=== PATIENT | female | born 1985 | race Caucasian/White ===

== ENCOUNTER 2018-03-27 01:03 | Emergency (ER) | payer SELFPAY ==
[~2018-03-27] VITALS: Ht 175.3 cm; Wt 108.4 kg
--- NOTE | 2018-03-27 01:08 | PHYS DOC ---
Adult General Chief Complaint Chief Complaint: vaginal bleeding, first trimester HPI HPI Patient is a 32 year old estimated 10 weeks gestation with confirmed IUP female who presents painless vaginal bleeding prior to ED arrival. Patient reports coughing and feeling a gash fluid in her vagina. Patient states she went to check herself she passed a large bright red blood clots in the toilet. He has not had any additional bleeding. Denies dizziness lightheadedness. No back pain, pelvic pain. No other acute symptoms or complaints. No prior complications with this .[] Review of Systems Review of Systems Review symptoms as per history of present illness. All other review of symptoms negative. All other systems were reviewed and found to be within normal limits, except as documented in this note. Allergies Allergies Allergies Coded Allergies Type Severity Reaction Last Updated Verified No Known Drug Allergies 03/27/18 No Physical Exam Physical Exam Constitutional: Well developed, well nourished, no acute distress, non-toxic appearance. [] HENT: Normocephalic, atraumatic, bilateral external ears normal, oropharynx moist, no oral exudates, nose normal. [] Eyes: PERRLA, EOMI, conjunctiva normal, no discharge. [] Abdomen: Bowel sounds normal, soft, no tenderness, no masses, no pulsatile masses. [] : External genitalia, dry blood present, minimal blood present in vaginal vault, no lesions, bright red blood present at cervical os. No lacerations or lesions.[] Psychologic: Affect normal, judgement normal, mood normal. [] Current Patient Data Vital Signs Vital Signs Date Time Temp Pulse Resp B/P (MAP) Pulse Ox O2 Delivery O2 Flow Rate FiO2 03/27/18 01:05 98.4 82 16 143/73 (96) 98 Room Air 98.4 Lab Values Laboratory Tests Test 03/27/18 01:20 White Blood Count 13.3 x10^3/uL (4.0-11.0) H Red Blood Count 4.64 x10^6/uL (3.50-5.40) Hemoglobin 14.4 g/dL (12.0-15.5) Hematocrit 40.2 % (36.0-47.0) Mean Corpuscular Volume 87 fL (79-100) Mean Corpuscular Hemoglobin 31 pg (25-35) Mean Corpuscular Hemoglobin Concent 36 g/dL (31-37) Red Cell Distribution Width 13.0 % (11.5-14.5) Platelet Count 238 x10^3/uL (140-400) Neutrophils (%) (Auto) 69 % (31-73) Lymphocytes (%) (Auto) 24 % (24-48) Monocytes (%) (Auto) 5 % (0-9) Eosinophils (%) (Auto) 1 % (0-3) Basophils (%) (Auto) 1 % (0-3) Neutrophils # (Auto) 9.2 x10^3uL (1.8-7.7) H Lymphocytes # (Auto) 3.2 x10^3/uL (1.0-4.8) Monocytes # (Auto) 0.7 x10^3/uL (0.0-1.1) Eosinophils # (Auto) 0.1 x10^3/uL (0.0-0.7) Basophils # (Auto) 0.1 x10^3/uL (0.0-0.2) Maternal Serum HCG Beta Subunit 56376 mIU/mL (0-5) H Laboratory Tests 03/27/18 01:20 EKG EKG [] Radiology/Procedures Radiology/Procedures [OB US: Viable 10 week IUP without evidence of bleeding.] Course & Med Decision Making Course & Med Decision Making Pertinent Labs and Imaging studies reviewed. (See chart for details) [RH positive. bleeding resolved, ultrasound reassuring. Recommend watchful waiting, supportive care with [employer]PER[employer] follow-up. Return cautions reviewed. ] Dragon Disclaimer Dragon Disclaimer This electronic medical record was generated, in whole or in part, using a voice recognition dictation system. Departure Departure Impression: Primary Impression: Threatened miscarriage in early Disposition: 01 HOME, SELF-CARE Condition: DWIGHT ROLON DO Mar 27, 2018 01:08
[2018-03-27 01:36] LABS: BASO # 0.1 x10^3/uL (0.0-0.2); BASO % 1 % (0-3); EOS # 0.1 x10^3/uL (0.0-0.7); EOS % 1 % (0-3); HEMATOCRIT 40.2 % (36.0-47.0); HEMOGLOBIN 14.4 g/dL (12.0-15.5); LYMPH # 3.2 x10^3/uL (1.0-4.8); LYMPH % 24 % (24-48); MEAN CORPUSCULAR HEMOGLOBIN 31 pg (25-35); MEAN CORPUSCULAR HGB CONC 36 g/dL (31-37); MEAN CORPUSCULAR VOLUME 87 fL (79-100); MONO # 0.7 x10^3/uL (0.0-1.1); MONO % 5 % (0-9); NEUT # 9.2 x10^3uL (1.8-7.7); NEUT % 69 % (31-73); PLATELET COUNT 238 x10^3/uL (140-400); RED BLOOD COUNT 4.64 x10^6/uL (3.50-5.40); WHITE BLOOD COUNT 13.3 x10^3/uL (4.0-11.0)
--- NOTE | 2018-03-27 03:18 | RAD ---
Symmetrical ultrasound 03/27/2018. Reason for exam: Bleeding for one day. FINDINGS: There is a living intrauterine embryo showing heart rate of 182 bpm. Estimated age by crown-rump length measurement is 10 weeks 0 days, giving RUFINO of 10/23/2018. Amniotic fluid volume appears normal. The gestational sac is normal in appearance without apparent adjacent hemorrhage. The ovaries show no abnormality and there is no free fluid. IMPRESSION: Living intrauterine embryo. No apparent cause for bleeding. Electronically signed by: Macario Bolton Jr., MD (03/27/2018 3:14 AM) [facility]
[2018-03-27 04:22] VITALS: BP 156/73
== END 2018-03-27 04:25 | disposition home or self-care (01) ==
LOC: ER 01:03
DX: O20.0 Threatened abortion (principal); Z3A.10 10 weeks gestation of pregnancy
CPT/HCPCS: 36415; 76801; 76817; 84702; 85025; 86901; 99284-25

== ENCOUNTER 2018-04-14 00:15 | Emergency (ER) | payer OTHER ==
[~2018-04-14] VITALS: Ht 172.7 cm; Wt 112.5 kg
[2018-04-14 00:26] VITALS: BP 137/75
[2018-04-14 00:32] LABS: BILIRUBIN,URINE NEGATIVE (NEG); CLARITY,URINE CLEAR; COLOR,URINE AMBER; NITRITE,URINE NEGATIVE (NEG); PH,URINE 5.5; PROTEIN,URINE 100 mg/dL (NEG-TRACE); UROBILINOGEN,URINE 0.2 mg/dL (0.2 mg/dL)
[2018-04-14 00:59] LABS: BACTERIA,URINE MODERATE /HPF (0-FEW); RBC,URINE TNTC /HPF (0-2); SQUAMOUS EPITHELIAL CELL,UR MOD /LPF; WBC,URINE OCC /HPF (0-4)
--- NOTE | 2018-04-14 01:00 | PHYS DOC ---
Past Medical History Past Medical History: Cancer Additional Past Medical Histor: ADENOCARINOMA OF UTERUS Past Surgical History: Other Additional Past Surgical Histo: LEFT ANKLE, UTERUS SCRAPING Alcohol Use: None Drug Use: Marijuana Adult General Chief Complaint Chief Complaint: VAGINAL BLEEDING HPI HPI Patient is a 32 year old G1, P0 estimated 13 week gestation female who presents with vaginal bleeding. Symptom onset was 30 minutes prior to ED arrival. Patient noted at gushing sensation and spotting bright red blood while using the bathroom. Bleeding is since resolved. Patient was evaluated in this emergency department for vaginal bleeding 2 weeks ago and had a documented viable 10 week IUP at that time. She has since followed up with her [facility] [employer] and denies further complications prior to today. No dizziness lightheadedness, chest pain, shortness of breath. Denies recent intercourse. Patient's blood type is Rh+[] Review of Systems Review of Systems Review symptoms as per history of present illness. All other review symptoms are negative. All other systems were reviewed and found to be within normal limits, except as documented in this note. Allergies Allergies Allergies Coded Allergies Type Severity Reaction Last Updated Verified No Known Drug Allergies 03/27/18 No Physical Exam Physical Exam Constitutional: Well developed, well nourished, no acute distress, non-toxic appearance. [] HENT: Normocephalic, atraumatic, bilateral external ears normal, oropharynx moist, no oral exudates, nose normal. []] Abdomen: Bowel sounds normal, soft, nontender. [] : External genitalia, normal, cervix closed, small clot in vaginal vault, no active bleeding. [] Back: No tenderness, no CVA tenderness. [] Neurologic: Alert and oriented X 3, normal motor function, normal sensory function, no focal deficits noted. [] Psychologic: Affect normal, judgement normal, mood normal. [] Current Patient Data Vital Signs Vital Signs Date Time Temp Pulse Resp B/P (MAP) Pulse Ox O2 Delivery O2 Flow Rate FiO2 04/14/18 00:26 97.8 94 18 137/75 (95) 99 Room Air 97.8 Lab Values Laboratory Tests Test 04/14/18 00:27 POC Urine HCG, Qualitative Hcg positive (Negative) EKG EKG [] Radiology/Procedures Radiology/Procedures [] Course & Med Decision Making Course & Med Decision Making Pertinent Labs and Imaging studies reviewed. (See chart for details) [No active bleeding. heart tones are 160. Rh+. RH positive. 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 Return precautions reviewed.] Raphael Disclaimer Raphael Disclaimer This electronic medical record was generated, in whole or in part, using a voice recognition dictation system. Departure Departure Impression: Primary Impression: Vaginal bleeding affecting early Disposition: 01 HOME, SELF-CARE Condition: GOOD Referrals: NO PCP Patient Instructions: Vaginal Bleeding During , First Trimester Additional Instructions: Pelvic rest for 2 weeks, follow up with your [facility]. DWIGHT RESENDEZ DO Apr 14, 2018 01:00
== END 2018-04-14 01:00 | disposition home or self-care (01) ==
LOC: ER 00:15
DX: O20.8 Other hemorrhage in early pregnancy (principal); Z3A.13 13 weeks gestation of pregnancy
CPT/HCPCS: 81001; 81025; 87086; 99283

== ENCOUNTER 2018-06-10 18:25 | Observation (INO) | payer MEDICAID, OTHER ==
[2018-06-10] MEDS ORDERED: IV RINGERS,LACTATED 1000ML 1,000 ML IV PRN (19:00)
[2018-06-10 19:12] LABS: BILIRUBIN,URINE NEGATIVE (NEG); CLARITY,URINE TURBID; COLOR,URINE YELLOW; NITRITE,URINE NEGATIVE (NEG); PH,URINE 6.5; PROTEIN,URINE NEGATIVE (NEG-TRACE); UROBILINOGEN,URINE 0.2 mg/dL (0.2 mg/dL)
[2018-06-10 19:19] LABS: AMORPHOUS SEDIMENT,UR PRESENT /HPF; SQUAMOUS EPITHELIAL CELL,UR MOD /LPF
[2018-06-10 19:21] LABS: BARBITURATES NEG (NEG); BENZODIAZEPINES NEG (NEG); CANNABINOIDS POS (NEG); COCAINE NEG (NEG); METHADONE NEG (NEG); OPIATES NEG (NEG); PHENCYCLIDINE NEG (NEG)
[2018-06-10 19:23] LABS: AMPHETAMINE/METHAMPHETAMINE NEG (NEG)
[2018-06-10 19:26] LABS: BACTERIA,URINE 0 /HPF (0-FEW); GRANULAR CASTS,URINE FEW /HPF; RBC,URINE 0 /HPF (0-2); WBC,URINE 0 /HPF (0-4)
== END 2018-06-10 21:00 | disposition home or self-care (01) ==
LOC: 3 SO LND 18:25
PROVIDERS: ADMIT Obstetrics & Gynecology; ATTEND Obstetrics & Gynecology
DX: O26.892 Other specified pregnancy related conditions, second trimester (principal); M54.9 Dorsalgia, unspecified; Z3A.21 21 weeks gestation of pregnancy
CPT/HCPCS: 80307; 81001; 87086; G0378; G0379

== ENCOUNTER 2018-07-12 09:05 | Observation (INO) | payer OTHER ==
[2018-07-12] MEDS ORDERED: IV RINGERS,LACTATED 1000ML 1,000 ML IV SCH (09:45)
[2018-07-12 09:51] LABS: BILIRUBIN,URINE NEGATIVE (NEG); CLARITY,URINE CLEAR; COLOR,URINE YELLOW; NITRITE,URINE NEGATIVE (NEG); PH,URINE 6.5; PROTEIN,URINE NEGATIVE (NEG-TRACE); UROBILINOGEN,URINE 0.2 mg/dL (0.2 mg/dL)
[2018-07-12 10:00] LABS: BACTERIA,URINE FEW /HPF (0-FEW); RBC,URINE 0 /HPF (0-2); SQUAMOUS EPITHELIAL CELL,UR MANY /LPF
[2018-07-12 10:02] LABS: BARBITURATES NEG (NEG); BENZODIAZEPINES NEG (NEG); CANNABINOIDS POS (NEG); COCAINE NEG (NEG); METHADONE NEG (NEG); OPIATES NEG (NEG); PHENCYCLIDINE NEG (NEG)
[2018-07-12 10:05] LABS: AMPHETAMINE/METHAMPHETAMINE NEG (NEG)
[2018-07-12] MEDS ORDERED: CYCLOBENZAPRINE 10 MG TABLET. PO ONE (10:45)
== END 2018-07-12 11:15 | disposition home or self-care (01) ==
LOC: 3 SO LND 09:05
PROVIDERS: ADMIT Specialist; ATTEND Specialist
DX: O26.892 Other specified pregnancy related conditions, second trimester (principal); M54.9 Dorsalgia, unspecified; Z3A.25 25 weeks gestation of pregnancy
CPT/HCPCS: 80307; 81001; 87086; G0378; G0379

== ENCOUNTER 2018-08-22 21:17 | Emergency (ER) | payer OTHER ==
[~2018-08-22] VITALS: Ht 167.6 cm; Wt 116.6 kg
[2018-08-22] MEDS ORDERED: MICO1KIT79 VG (21:59)
--- NOTE | 2018-08-22 21:59 | PHYS DOC ---
Past Medical History Past Medical History: Cancer Additional Past Medical Histor: ADENOCARINOMA OF UTERUS Past Surgical History: Other Additional Past Surgical Histo: LEFT ANKLE, UTERUS SCRAPING Alcohol Use: None Drug Use: Marijuana Adult General Chief Complaint Chief Complaint: VAGINAL PROBLEM HPI HPI Patient is a 32 year old female who presents with vaginal pain and swelling. She states she is also having some itching. Pt states she is 31 weeks with her first baby and that her OB is at . I asked her about concerns of STDs and she said "no but earlier today I went to the bathroom and my underwear was soaking wet". She states it was clear liquid. Pt has been having some contractions but has been told they are probably [place]. She denies any vaginal bleeding. I helped pt to the bathroom and on the way she requested to be checked for STDs stating that if her "baby daddy in the room might be cheating on me". Pt is feeling baby move often. heart tones were checked and 128-130's and strong. Quick vaginal swabs were done to check for yeast, trich, BV, GC and Chlamydia. I discussed with pt that I would like to get her upstairs to L&D for monitoring since she is reporting loss of clear fluids and she agrees with plan. If any tests are positive, she will be contacted. Review of Systems Review of Systems Constitutional: Denies fever or chills Respiratory: Denies cough or shortness of breath Cardiovascular: Denies chest pain GI: Denies abdominal pain, nausea, vomiting, bloody stools or diarrhea : Clear discharge, vulva swollen and painful Musculoskeletal: Denies back pain or joint pain Neurologic: Denies headache, focal weakness or sensory changes All other systems were reviewed and found to be within normal limits, except as documented in this note. Allergies Allergies Allergies Coded Allergies Type Severity Reaction Last Updated Verified No Known Drug Allergies 03/27/18 No Physical Exam Physical Exam Constitutional: Well developed, well nourished, no acute distress, non-toxic appearance. Neck: Normal range of motion, no tenderness, supple, no stridor. Cardiovascular:Heart rate regular rhythm, no murmur Lungs & Thorax: Bilateral breath sounds clear to auscultation Abdomen: Bowel sounds normal, soft, no tenderness, no masses, no pulsatile m asses. Skin: Warm, dry, no erythema, no rash. Back: No tenderness, no CVA tenderness. Extremities: No tenderness, no cyanosis, no clubbing, ROM intact, no edema. Neurologic: Alert and oriented X 3, normal motor function, normal sensory function, no focal deficits noted. Psychologic: Affect normal, judgement normal, mood normal. : vulva erythematous and mildly swollen, speculum exam shows closed cervix with no obvious discharge and no bleeding heart tones 142 bpm Current Patient Data Vital Signs Vital Signs Date Time Temp Pulse Resp B/P (MAP) Pulse Ox O2 Delivery O2 Flow Rate FiO2 08/22/18 22:10 98.6 94 16 128/60 (82) 99 Room Air 98.6 Lab Values Laboratory Tests Test 08/22/18 22:07 Chlamydia DNA Probe Negative (Negative) Neisseria gonorrhoeae DNA Probe Negative (Negative) Microbiology 08/22/18 Wet Prep - Final, Complete EKG EKG [] Radiology/Procedures Radiology/Procedures [] Course & Med Decision Making Course & Med Decision Making Pertinent Labs and Imaging studies reviewed. (See chart for details) Pt's UA and vaginal swabs collected and then pt sent directly upstairs to L&D for further evaluation. Dragon Disclaimer Dragon Disclaimer This electronic medical record was generated, in whole or in part, using a voice recognition dictation system. Departure Departure Impression: Primary Impression: Vaginal pain Additional Impression: Disposition: 01 HOME, SELF-CARE Condition: STABLE Referrals: NATALIE BRISENO MD (PCP) Patient Instructions: Vaginitis, [id number] Additional Instructions: Due to you describing clear fluid discharge today and being 31 weeks , we are going to send you to L&D for evaluation of baby. The cultures done today will be ready in a few days and you will be contacted with positive results. Scripts Miconazole/Skin Cleanser No.17 (MONISTAT 3 COMBO PACK) 1 Each Kit 1 EACH VG DAILY for 3 Days, #3 EACH Prov: CHUCK RODRIGES 08/22/18 Problem Qualifiers CHUCK RODRIGES August 22, 2018 21:59
[2018-08-22 22:10] VITALS: BP 128/60
[2018-08-25 21:08] LABS: GC PROBE Negative (Negative)
== END 2018-08-22 22:18 | disposition home or self-care (01) ==
LOC: ER 21:17
DX: O99.89 Other specified diseases and conditions complicating pregnancy, childbirth and the puerperium (principal); N76.89 Other specified inflammation of vagina and vulva; R10.2 Pelvic and perineal pain; Z3A.31 31 weeks gestation of pregnancy
CPT/HCPCS: 87491; 87591; 99284; Q0111

== ENCOUNTER 2018-08-22 22:20 | Observation (INO) | payer OTHER ==
[2018-08-22 22:10] VITALS: BP 128/60
[~2018-08-22 22:20] MED LIST: MICO1KIT79 VG
[2018-08-22] MEDS ORDERED: IV RINGERS,LACTATED 1000ML 1,000 ML IV SCH (22:45)
[2018-08-22 22:58] LABS: BILIRUBIN,URINE SMALL (NEG); CLARITY,URINE CLOUDY; COLOR,URINE AMBER; NITRITE,URINE POSITIVE (NEG); PH,URINE 6.5; PROTEIN,URINE 30 mg/dL (NEG-TRACE)
[2018-08-22 23:04] LABS: AMPHETAMINE/METHAMPHETAMINE NEG (NEG); BARBITURATES NEG (NEG); BENZODIAZEPINES NEG (NEG); CANNABINOIDS NEG (NEG); COCAINE NEG (NEG); METHADONE NEG (NEG); OPIATES NEG (NEG); PHENCYCLIDINE NEG (NEG)
[2018-08-22 23:07] LABS: BACTERIA,URINE MODERATE /HPF (0-FEW); RBC,URINE 0 /HPF (0-2)
[2018-08-22 23:08] LABS: SQUAMOUS EPITHELIAL CELL,UR OCC /LPF; TRICHOMONAS,URINE PRESENT
[2018-08-22 23:51] LABS: AMNIO PT NEGATIVE
== END 2018-08-23 00:10 | disposition home or self-care (01) ==
LOC: 3 SO LND 22:20
PROVIDERS: ADMIT Obstetrics & Gynecology; ATTEND Obstetrics & Gynecology
DX: O42.913 Preterm premature rupture of membranes, unspecified as to length of time between rupture and onset of labor, third trimester (principal); O26.893 Other specified pregnancy related conditions, third trimester; R10.2 Pelvic and perineal pain; Z3A.31 31 weeks gestation of pregnancy
CPT/HCPCS: 36415; 80307; 81001; 84112; 87086; G0378; G0379

== ENCOUNTER 2018-09-21 21:22 | Observation (INO) | payer OTHER ==
[2018-09-21] MEDS ORDERED: IV RINGERS,LACTATED 1000ML 1,000 ML IV SCH (21:39)
[2018-09-21] MEDS ORDERED: ACETAMINOPHEN 325 MG TABLET. PO PRN (21:45)
[2018-09-21] MEDS ORDERED: MAG HYDROX/ALUMINUM HYD/SIMETH 30 ML ORAL.SUSP PO PRN (21:45)
[2018-09-21] MEDS ORDERED: ONDANSETRON PF 4 MG/2 ML VIAL. IV PRN (21:45)
[2018-09-21 22:17] LABS: BILIRUBIN,URINE NEGATIVE (NEG); CLARITY,URINE CLEAR; COLOR,URINE YELLOW; NITRITE,URINE NEGATIVE (NEG); PH,URINE 6.5; PROTEIN,URINE NEGATIVE (NEG-TRACE); UROBILINOGEN,URINE 0.2 mg/dL (0.2 mg/dL)
[2018-09-21 22:23] LABS: BACTERIA,URINE 0 /HPF (0-FEW); BARBITURATES NEG (NEG); BENZODIAZEPINES NEG (NEG); CANNABINOIDS NEG (NEG); COCAINE NEG (NEG); METHADONE NEG (NEG); OPIATES NEG (NEG); PHENCYCLIDINE NEG (NEG); SQUAMOUS EPITHELIAL CELL,UR MANY /LPF
[2018-09-21 22:24] LABS: AMPHETAMINE/METHAMPHETAMINE NEG (NEG)
== END 2018-09-21 23:05 | disposition home or self-care (01) ==
LOC: 3 SO LND 21:22
PROVIDERS: ADMIT Obstetrics & Gynecology; ATTEND Obstetrics & Gynecology
DX: O14.93 Unspecified pre-eclampsia, third trimester (principal); O26.893 Other specified pregnancy related conditions, third trimester; R07.81 Pleurodynia; Z3A.36 36 weeks gestation of pregnancy
CPT/HCPCS: 80307; 81001; 87086; G0378; G0379

== ENCOUNTER 2018-10-10 17:15 | Observation (INO) | payer OTHER ==
[2018-10-10] MEDS ORDERED: IV RINGERS,LACTATED 1000ML 1,000 ML IV PRN (18:00)
[2018-10-10 18:11] LABS: BILIRUBIN,URINE SMALL (NEG); CLARITY,URINE CLOUDY; COLOR,URINE AMBER; NITRITE,URINE NEGATIVE (NEG); PH,URINE 6.5; PROTEIN,URINE NEGATIVE (NEG-TRACE)
[2018-10-10 18:16] LABS: SQUAMOUS EPITHELIAL CELL,UR MOD /LPF
[2018-10-10 18:18] LABS: BARBITURATES NEG (NEG); BENZODIAZEPINES NEG (NEG); CANNABINOIDS NEG (NEG); COCAINE NEG (NEG); METHADONE NEG (NEG); OPIATES NEG (NEG); PHENCYCLIDINE NEG (NEG); RBC,URINE 0 /HPF (0-2)
[2018-10-10 18:19] LABS: AMORPHOUS SEDIMENT,UR PRESENT /HPF; BACTERIA,URINE 0 /HPF (0-FEW)
[2018-10-10 18:27] LABS: AMPHETAMINE/METHAMPHETAMINE NEG (NEG)
[2018-10-10 19:23] LABS: BASO % 1 % (0-3); EOS % 0 % (0-3); HEMATOCRIT 33.9 % (36.0-47.0); LYMPH # 1.6 x10^3/uL (1.0-4.8); LYMPH % 19 % (24-48); MEAN CORPUSCULAR HEMOGLOBIN 31 pg (25-35); MEAN CORPUSCULAR HGB CONC 35 g/dL (31-37); MEAN CORPUSCULAR VOLUME 88 fL (79-100); MONO # 0.5 x10^3/uL (0.0-1.1); MONO % 6 % (0-9); NEUT # 6.5 x10^3uL (1.8-7.7); NEUT % 75 % (31-73); PLATELET COUNT 167 x10^3/uL (140-400); RED BLOOD COUNT 3.87 x10^6/uL (3.50-5.40); WHITE BLOOD COUNT 8.6 x10^3/uL (4.0-11.0)
[2018-10-10 19:47] LABS: ALBUMIN 2.3 g/dL (3.4-5.0); ALBUMIN/GLOBULIN RATIO 0.6 (1.0-1.7); CALCIUM 8.3 mg/dL (8.5-10.1); CREATININE 0.8 mg/dL (0.6-1.0); GFR 83.7; TOTAL BILIRUBIN 0.4 mg/dL (0.2-1.0)
[2018-10-10 19:55] LABS: POTASSIUM 2.9 mmol/L (3.5-5.1)
[2018-10-10] MEDS: POTASSIUM CL 20MEQ D5-0.45NACL 1,000 ML IV SCH (20:14)
[2018-10-10] MEDS ORDERED: ACETAMINOPHEN 500 MG TABLET PO PRN (20:30)
[2018-10-10] MEDS ORDERED: ZOLPIDEM 5 MG TABLET. PO PRN (20:30)
[2018-10-10] MEDS ORDERED: MAG HYDROX/ALUMINUM HYD/SIMETH 30 ML ORAL.SUSP PO PRN (20:30)
[2018-10-11] MEDS: POTASSIUM CL 20MEQ D5-0.45NACL 1,000 ML IV SCH (04:23)
[2018-10-11 05:56] LABS: BASO % 0 % (0-3); EOS % 1 % (0-3); HEMATOCRIT 32.6 % (36.0-47.0); HEMOGLOBIN 11.6 g/dL (12.0-15.5); LYMPH # 1.8 x10^3/uL (1.0-4.8); LYMPH % 22 % (24-48); MEAN CORPUSCULAR HEMOGLOBIN 31 pg (25-35); MEAN CORPUSCULAR HGB CONC 36 g/dL (31-37); MEAN CORPUSCULAR VOLUME 88 fL (79-100); MONO # 0.6 x10^3/uL (0.0-1.1); MONO % 7 % (0-9); NEUT # 5.9 x10^3uL (1.8-7.7); NEUT % 71 % (31-73); PLATELET COUNT 142 x10^3/uL (140-400); RED BLOOD COUNT 3.72 x10^6/uL (3.50-5.40); RED CELL DISTRIBUTION WIDTH 12.9 % (11.5-14.5); WHITE BLOOD COUNT 8.4 x10^3/uL (4.0-11.0)
[2018-10-11 06:01] LABS: ALBUMIN 2.2 g/dL (3.4-5.0); ALBUMIN/GLOBULIN RATIO 0.6 (1.0-1.7); CALCIUM 8.4 mg/dL (8.5-10.1); CREATININE 0.7 mg/dL (0.6-1.0); GFR 97.6; TOTAL BILIRUBIN 0.3 mg/dL (0.2-1.0); TOTAL PROTEIN 5.9 g/dL (6.4-8.2)
== END 2018-10-11 06:41 | disposition home or self-care (01) ==
LOC: 3 SO LND 17:15
PROVIDERS: ADMIT Obstetrics & Gynecology; ATTEND Obstetrics & Gynecology
DX: O26.893 Other specified pregnancy related conditions, third trimester (principal); R10.9 Unspecified abdominal pain; R11.0 Nausea; R06.00 Dyspnea, unspecified; Z3A.38 38 weeks gestation of pregnancy
CPT/HCPCS: 36415; 80053; 80307; 81001; 85025; 87086; G0378; G0379; J7120

== ENCOUNTER → 2019-09-25 | Outpatient (CLI) | payer OTHER ==
[2018-10-15 15:20] VITALS: BP 126/62
--- NOTE | 2019-09-25 14:59 | RAD ---
EXAM: Obstetrics sonogram. HISTORY: Size and dates discrepancy. TECHNIQUE: Sonographic imaging of a gravid uterus was performed. COMPARISON: None. FINDINGS: There is a single intrauterine fetus in cephalic presentation with a heart rate of 149 bpm. There is body motion. There is a four-chamber heart. There is a three-vessel umbilical cord with normal insertion. The bladder, kidneys, spine, brain, stomach, facial profile and extremities are unremarkable. The cervix measures 3.6 cm in length and is closed. There is a grade 1 posterior placenta without placenta previa. The amniotic fluid volume is grossly normal. The biparietal diameter is 5.83 cm, corresponding with 23 weeks and 6 days. The head circumference is 21.39 cm, corresponding with 23 weeks and 3 days. The abdominal circumference is 18.1 cm, corresponding with 20 weeks and 0 days. The femoral length is 4.04 cm, corresponding with 23 weeks and 0 days. The estimated gestational age patient combined ultrasound measurements is 23 weeks and 2 days and the estimated weight is 561 g. This corresponds with the 56 percentile for a gestational age of 22 weeks and 0 days based on LMP. IMPRESSION: Single intrauterine fetus with normal heart rate and gestational age patient also measurements of 23 weeks and 2 days. The estimated weight is at the 56th percentile for a gestational age of 22 weeks and 0 days on LMP. Electronically signed by: Gena De Anda MD (09/25/2019 2:56 PM) [id number]
== END | disposition home or self-care (01) ==
LOC: US 13:49
PROVIDERS: ATTEND Obstetrics & Gynecology
DX: O26.842 Uterine size-date discrepancy, second trimester (principal); Z3A.23 23 weeks gestation of pregnancy
CPT/HCPCS: 76805

== ENCOUNTER 2019-10-21 14:38 | Observation (INO) | payer OTHER ==
[2018-10-15 15:20] VITALS: BP 126/62
[2019-10-21] MEDS ORDERED: IV RINGERS,LACTATED 1000ML 1,000 ML IV SCH (14:56)
[2019-10-21 15:11] LABS: BILIRUBIN,URINE NEGATIVE (NEG); CLARITY,URINE CLEAR; COLOR,URINE YELLOW; NITRITE,URINE NEGATIVE (NEG); PROTEIN,URINE NEGATIVE (NEG-TRACE); UROBILINOGEN,URINE 0.2 mg/dL (0.2 mg/dL)
[2019-10-21 15:21] LABS: BACTERIA,URINE 0 /HPF (0-FEW); SQUAMOUS EPITHELIAL CELL,UR FEW /LPF
== END 2019-10-21 16:00 | disposition home or self-care (01) ==
LOC: 3 SO LND 14:38
PROVIDERS: ADMIT Obstetrics & Gynecology; ATTEND Obstetrics & Gynecology
DX: O26.892 Other specified pregnancy related conditions, second trimester (principal); R10.2 Pelvic and perineal pain; Z3A.26 26 weeks gestation of pregnancy
CPT/HCPCS: 81001; G0378; G0379

== ENCOUNTER 2019-11-16 17:44 | Observation (INO) | payer OTHER ==
[2018-10-15 15:20] VITALS: BP 126/62
[2019-11-16] MEDS ORDERED: IV RINGERS,LACTATED 1000ML 1,000 ML IV PRN (19:00)
[2019-11-16 19:40] LABS: COLOR,URINE YELLOW
[2019-11-16 19:41] LABS: BILIRUBIN,URINE NEGATIVE (NEG); CLARITY,URINE CLEAR; NITRITE,URINE NEGATIVE (NEG); PROTEIN,URINE NEGATIVE (NEG-TRACE); UROBILINOGEN,URINE 0.2 mg/dL (0.2 mg/dL)
[2019-11-16 19:43] LABS: BACTERIA,URINE FEW /HPF (0-FEW); RBC,URINE 0 /HPF (0-2); SQUAMOUS EPITHELIAL CELL,UR MANY /LPF
[2019-11-16 19:47] LABS: BARBITURATES NEG (NEG); BENZODIAZEPINES NEG (NEG); CANNABINOIDS NEG (NEG); COCAINE NEG (NEG); METHADONE NEG (NEG); OPIATES NEG (NEG); PHENCYCLIDINE NEG (NEG)
[2019-11-16 19:49] LABS: AMPHETAMINE/METHAMPHETAMINE NEG (NEG)
== END 2019-11-16 20:01 | disposition home or self-care (01) ==
LOC: 3 SO LND 17:44
PROVIDERS: ADMIT Obstetrics & Gynecology; ATTEND Obstetrics & Gynecology
DX: O42.913 Preterm premature rupture of membranes, unspecified as to length of time between rupture and onset of labor, third trimester (principal); O26.853 Spotting complicating pregnancy, third trimester; O26.893 Other specified pregnancy related conditions, third trimester; R10.30 Lower abdominal pain, unspecified; Z3A.30 30 weeks gestation of pregnancy; Z79.899 Other long term (current) drug therapy
CPT/HCPCS: 80307; 81001; 87086; G0378; G0379

== ENCOUNTER 2019-12-19 16:03 | Observation (INO) | payer OTHER ==
[2018-10-15 15:20] VITALS: BP 126/62
[2019-12-19] MEDS ORDERED: IV RINGERS,LACTATED 1000ML 1,000 ML IV SCH (16:06)
[2019-12-19 16:28] LABS: BILIRUBIN,URINE SMALL (NEG); CLARITY,URINE CLOUDY; NITRITE,URINE NEGATIVE (NEG); PH,URINE 7.5 (<5.0-8.0); PROTEIN,URINE 30 mg/dL (NEG-TRACE)
[2019-12-19 16:32] LABS: CREATININE,RANDOM URINE 238.7 mg/dL (Not Establ.)
[2019-12-19 16:33] LABS: BASO % 0 % (0-3); EOS # 0.1 x10^3/uL (0.0-0.7); EOS % 1 % (0-3); HEMATOCRIT 31.3 % (36.0-47.0); HEMOGLOBIN 11.1 g/dL (12.0-15.5); LYMPH # 1.6 x10^3/uL (1.0-4.8); LYMPH % 15 % (24-48); MEAN CORPUSCULAR HEMOGLOBIN 31 pg (25-35); MEAN CORPUSCULAR HGB CONC 36 g/dL (31-37); MEAN CORPUSCULAR VOLUME 89 fL (79-100); MONO # 0.4 x10^3/uL (0.0-1.1); MONO % 4 % (0-9); NEUT # 8.4 x10^3/uL (1.8-7.7); NEUT % 80 % (31-73); PLATELET COUNT 169 x10^3/uL (140-400); RED BLOOD COUNT 3.53 x10^6/uL (3.50-5.40); RED CELL DISTRIBUTION WIDTH 13.7 % (11.5-14.5); WHITE BLOOD COUNT 10.5 x10^3/uL (4.0-11.0)
[2019-12-19 16:33] LABS: COLOR,URINE DK YELLOW
[2019-12-19 16:34] LABS: SQUAMOUS EPITHELIAL CELL,UR MANY /LPF; WBC,URINE >40 /HPF (0-4)
[2019-12-19 16:35] LABS: BACTERIA,URINE MANY /HPF (0-FEW); RBC,URINE OCC /HPF (0-2)
[2019-12-19 16:44] LABS: CALCIUM 8.8 mg/dL (8.5-10.1); CREATININE 0.8 mg/dL (0.6-1.0); GFR 82.6; POTASSIUM 3.5 mmol/L (3.5-5.1)
[2019-12-19 16:51] LABS: ALBUMIN 2.6 g/dL (3.4-5.0); ALBUMIN/GLOBULIN RATIO 0.6 (1.0-1.7); TOTAL BILIRUBIN 0.3 mg/dL (0.2-1.0); TOTAL PROTEIN 6.7 g/dL (6.4-8.2)
== END 2019-12-19 17:31 | disposition home or self-care (01) ==
LOC: 3 SO LND 16:03
PROVIDERS: ADMIT Obstetrics & Gynecology; ATTEND Obstetrics & Gynecology
DX: O13.3 Gestational [pregnancy-induced] hypertension without significant proteinuria, third trimester (principal); Z3A.35 35 weeks gestation of pregnancy
CPT/HCPCS: 36415; 80053; 81001; 82570; 84156; 85025; 87086; G0378; G0379

== ENCOUNTER 2020-01-02 19:38 | Observation (INO) | payer OTHER ==
[2018-10-15 15:20] VITALS: BP 126/62
[2020-01-02 20:26] LABS: BILIRUBIN,URINE NEGATIVE (NEG); CLARITY,URINE CLEAR; COLOR,URINE YELLOW; NITRITE,URINE NEGATIVE (NEG); PROTEIN,URINE NEGATIVE (NEG-TRACE)
[2020-01-02] MEDS ORDERED: IV RINGERS,LACTATED 1000ML 1,000 ML IV PRN (20:30)
[2020-01-02 20:31] LABS: SQUAMOUS EPITHELIAL CELL,UR MANY /LPF
[2020-01-02 20:32] LABS: AMORPHOUS SEDIMENT,UR PRESENT /HPF; BACTERIA,URINE MODERATE /HPF (0-FEW); WBC,URINE 20-40 /HPF (0-4)
[2020-01-02 20:33] LABS: BARBITURATES NEG (NEG); BENZODIAZEPINES NEG (NEG); CANNABINOIDS NEG (NEG); COCAINE NEG (NEG); METHADONE NEG (NEG); OPIATES NEG (NEG); PHENCYCLIDINE NEG (NEG)
[2020-01-02 20:34] LABS: AMPHETAMINE/METHAMPHETAMINE NEG (NEG)
== END 2020-01-02 21:25 | disposition home or self-care (01) ==
LOC: 3 SO LND 19:38
PROVIDERS: ADMIT Obstetrics & Gynecology; ATTEND Obstetrics & Gynecology
DX: O46.93 Antepartum hemorrhage, unspecified, third trimester (principal); Z91.040 Latex allergy status; Z3A.36 36 weeks gestation of pregnancy
CPT/HCPCS: 80307; 81001; 87086; G0378; G0379